=== PATIENT | male | born 1980 | race Caucasian/White ===

== ENCOUNTER 2023-07-09 09:55 | Emergency (ER) | payer BC, SELFPAY ==
[2023-07-09] VITALS (9 sets, daily range): BP systolic 113–154; BP diastolic 78–101; PULSE 91–103; RESP 14–27; TEMP 37.1; O2SAT 94–99; BMI 37.2
--- NOTE | 2023-07-09 10:09 | XR_ITS ---
The [address] [address] Patient Name: HERNANDO HA MRN: [id number] date: 1980 Sex: M Assigned Patient Location: ED.MAIN Current Patient Location: ER Accession/Order Number: [id number] Exam Date: 07/09/2023 10:50 Report Date: 07/09/2023 11:14 At the request of: VENUS TONY Procedure: XR chest 1V EXAM: XR chest 1V HISTORY: SOB COMPARISON: 01/31/2020 TECHNIQUE: Chest X-ray AP, 1 view FINDINGS: Support devices: None. Lungs/pleura: No consolidation, effusion, or pneumothorax. Heart and mediastinum: Normal contours. Bones: No acute abnormality identified. XR/XR chest 1V Impression: No radiographic evidence of acute cardiopulmonary process. Electronically authenticated by: FAISAL COATS Date: 07/09/2023 11:14
--- NOTE | 2023-07-09 10:10 | ED.URI1 ---
HPI - URI/Sore Throat General Chief Complaint: Upper Respiratory Infection Stated Complaint: CHEST DISCOMFORT/WHEEZING Time Seen by Provider: 07/09/23 09:59 Source: patient History of Present Illness HPI Narrative: 42-year-old male presents for a cough. He has had this for about 10 days and his wanted him to come in and get checked. He has had some wheezing at home. He had childhood asthma but outgrew it. He has not had a fever at home. No vomiting or diarrhea. The wheezing gets worse when he lays down flat. Related Data Previous Rx's Medication Instructions Recorded albuterol sulfate 90 mcg/actuation 2 inh inhalation Q4H PRN shortness 07/09/23 aerosol inhaler of breath or wheezing #8.5 grams azithromycin 250 mg tablet See Rx Instructions PO .COMPLEX #6 07/09/23 (Zithromax Z-Darek) tabs benzonatate 100 mg capsule 100 mg PO TID PRN cough #20 caps 07/09/23 Allergies Allergy/AdvReac Type Severity Reaction Status Date / Time amoxicillin [From Augmentin] Allergy Severe Verified 07/09/23 10:02 clavulanic acid Allergy Severe Verified 07/09/23 10:02 [From Augmentin] Review of Systems ROS Narrative A ten point review of systems is negative except as noted above. Exam Narrative Exam Narrative: Nurses note and vital signs reviewed and patient is not hypoxic. General: The patient appears well and in no apparent distress. Patient is resting comfortably on cart. Skin: Warm, dry, no pallor noted. There is no rash noted. Head: Normocephalic, atraumatic Eye: Normal conjunctiva, no drainage Ears, Nose, Mouth, and Throat: oral mucosa is moist. Nares patent. Cardiovascular: Regular Rate and Rhythm Respiratory: Rhonchi present. Breath sounds equal, patient is in no distress Back: non-tender GI: Normal bowel sounds, no tenderness to palpation, no masses appreciated. No rebound, guarding, or rigidity noted. Musculoskeletal: The patient has no evidence of calf tenderness, no pitting edema, symmetrical pulses noted bilaterally Neurological: A&O, normal speech Psychiatric: Cooperative Constitutional Vital Signs, click to edit/add: Last Vital Signs Temp 98.8 F 07/09/23 09:58 Pulse 96 H 07/09/23 11:00 Resp 19 07/09/23 11:00 BP 137/97 H 07/09/23 10:30 Pulse Ox 96 07/09/23 10:50 O2 Del Method Room Air 07/09/23 10:06 Course Vital Signs Vital signs: Vital Signs Temperature 98.8 F 07/09/23 09:58 Pulse Rate 94 H 07/09/23 09:58 Respiratory Rate 20 07/09/23 09:58 Blood Pressure 154/94 H 07/09/23 09:58 Pulse Oximetry 97 07/09/23 09:58 Oxygen Delivery Method Room Air 07/09/23 09:58 Temperature 98.8 F 07/09/23 09:58 Pulse Rate 96 H 07/09/23 11:00 Respiratory Rate 19 07/09/23 11:00 Blood Pressure 137/97 H 07/09/23 10:30 Pulse Oximetry 96 07/09/23 10:50 Oxygen Delivery Method Room Air 07/09/23 10:06 MDM - URI/Sore Throat MDM Narrative Medical decision making narrative: X-ray is negative. He was offered COVID testing but already took it at home and does not feel that he needs another one. He is prescribed albuterol and Zithromax and Tessalon. Treatment diagnosis and follow-up were discussed with the patient. Differential Diagnosis Differential diagnosis: Likely upper respiratory infection, viral infection, bronchitis, influenza and other (COVID, pneumonia) Imaging Data Chest x-ray: Radiologist's impression: ITS Impressions Chest X-Ray 07/09/23 10:09 Impression: No radiographic evidence of acute cardiopulmonary process. Electronically authenticated by: FAISAL COATS Date: 07/09/2023 11:14 ECG Data Attestation: I personally reviewed and interpreted this ECG as follows: (EKG on my interpretation shows normal sinus rhythm without acute change and a rate of 96.) Discharge Plan Discharge Chief Complaint: Upper Respiratory Infection Clinical Impression: Upper respiratory infection Patient Disposition: Home, Self-Care Time of Disposition Decision: 11:30 Condition: Good Mode of Transportation: Private Vehicle Prescriptions / Home Meds: New azithromycin [Zithromax Z-Darek] 250 mg tablet See Rx Instructions .ROUTE .COMPLEX Qty: 6 0RF Rx Instructions: For 250 mg dose pack: take 500 mg today (day 1), then 250 mg for 4 days (days 2-5) benzonatate 100 mg capsule 100 mg PO TID PRN (Reason: cough) Qty: 20 0RF albuterol sulfate 90 mcg/actuation HFA aerosol inhaler 2 inh inhalation Q4H PRN (Reason: shortness of breath or wheezing) Qty: 8.5 0RF Instructions: Upper Respiratory Infection (ED) Stand Alone Forms: Portal Instructions Referrals: Luisa Herrera MD [Primary Care Provider] - 1 week
--- NOTE | 2023-07-09 10:12 | ECG_ITS ---
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
[2023-07-09] MEDS: ALBUTEROL SULFATE 2.5 MG/3 ML VIAL NEB IH (10:20)
== END 2023-07-09 11:38 | disposition home or self-care (01) ==
PROVIDERS: Emergency Provider Emergency Medicine; PCP Family Medicine
DX: J06.9 Acute upper respiratory infection, unspecified (principal); R06.2 Wheezing
CPT/HCPCS: 71045; 93005; 94640; 99284

== ENCOUNTER 2023-09-05 09:16 | Outpatient (OUT) | payer BC, SELFPAY ==
--- OUTSIDE RECORDS SUMMARY | 2023-09-05 09:31 | XMS_ITS | CCD ---
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 05/03/23 11:32 EST Hospital Discharge instructions 05-03-2023 Note Date & Type Note Facility 05-03-2023 Hospital Discharg e instructions Patient Education 05/03/2023 11:30:16 Testicular Self-Exam Testicular Self-Exam A self-examination of your testicles (testicular self-exam) involves looking at and feeling your testicles for abnormal lumps or swelling. Several things can cause swelling, lumps, or pain in your testicles. Some of these causes are: Injuries. Inflammation. Infection. Buildup of fluids around the testicle (hydrocele). Twisted testicles (testicular torsion). Testicular cancer. You may be at risk for testicular cancer if you have: ?An undescended testicle (cryptorchidism). ?A history of previous testicular cancer. ?A family history of testicular cancer. General tips and recommendations The testicles are easiest to examine after a warm bath or shower. They are more difficult to examine when you are cold because the muscles attached to the testicles retract and pull them up higher or into the abdomen. A normal testicle is egg-shaped and feels firm. It is smooth and not tender. It is normal to feel a firm, spaghetti-like cord at the back of your testicle. This is the spermatic cord. How to do a testicular self-exam 1.Stand and hold your penis away from your body. 2.Look at each testicle to check for changes in appearance, such as swelling or changes in size or shape. 3.Roll each testicle between your thumb and forefinger, feeling the entire testicle. Feel for: Lumps. Swelling. Discomfort. 4.Check the groin area between your abdomen and upper thighs on both sides of your body. Look and feel for any swelling or bumps that are tender. These could be enlarged lymph nodes. Contact a health care provider if: You find any bumps or lumps, such as a small, hard, pea-sized lump. You find swelling, pain, or soreness. You see or feel any other changes in your testicles. Summary A self-examination of your testicles (testicular self-exam) involves looking at and feeling your testicles for any changes. Check each of your testicles for lumps, swelling, or discomfort. These changes can be caused by many things. Check for swelling or tender bumps in your groin area between your lower abdomen and upper thighs. This information is not intended to replace advice given to you by your health care provider. Make sure you discuss any questions you have with your health care provider. Document Revised: 04/14/2020 Document Reviewed: 04/14/2020 [employer] Patient Education 2022 [email or web address]. Follow Up Care 01/18/2023 12:18:29 With:KAROLINA LEON, Deon Flores, URL Address: [address] [place] [address]- When: Unknown [facility] Evaluation note 11-18-2022 Note Date & Type Note Facility 11-18-2022 Evaluation note Encounter Date Diagnosis Assessment Notes Oct, Breast pain, left (ICD-10 - N64.4) Discussed differential - no injury or trauma. Has been consistent for some time. Obtain US for further reassurance. [employer] Other Evaluation + Plan note Note Date & Type Note Facility Evaluation + Plan note No data available for this section [facility] [place] Evaluation note Note Date & Type Note Facility Evaluation note No assessment information availa [facility] Work Phone: Evaluation note Note Date & Type Note Facility Evaluation note Diagnosis Onset Date Bronchitis acute LUQ abdominal pain acute Chronic cough acute [facility] Work Phone: History general Narrative - Reported Note Date & Type Note Facility History general Narrative - Reported Type Medical History Depression/anxiety Medical History R shoulder pain Medical History lumbar pain Surgical History Tailbone - pilonidal cyst 2019 Surgical History Back surgery, L4-L5 2018 Surgical History Appendectomy 1996 [employer] Other Progress note Note Date & Type Note Facility Progress note No data available for this section [facility] [place] Summary Purpose Family History Relationship Condition Age at Onset Recorded Date/T cornelius brother Family history of mental disorder Unknown father Heart disease Unknown Diabetes mellitus Unknown Advance Directives Advance Directive Response Recorded Date/ Time Advance Directives No August 04, 024 8:58am Chief Complaint and Reason for Visit Chief Complaint ER Follow Up Chief Complaint ER Follow Up 1 month follow up Reason for Visit Bronchitis LUQ abdominal pain Chronic cough Additional Source Comments (unrecognized sect ion and content) No Status Records FoundNo Status Records FoundNo Status Records Found INFORMATION SOURCE (unrecogn ized section and content) DATE CREATED AUTHOR 04/11/2020 [facility] DATE CREATED AUTHOR AUTHOR'S ORGANIZ ATION 08/04/2020 Alisha covarrubias DATE CREATED AUTHOR AUTHOR'S ORGANIZ ATION 05/05/2023 [facility] REASON FOR VISIT (unrecogniz ed section and content) CHECK UP Patient Care team informatio n (unrecognized section and content) Team Status: Active Member Role Status Dates Luisa Herrera MD Primary Care Provider Active Team Status: Inactive Member Role Status Dates Luisa Herrera MD Primary Care Provide r, Attending Provider Active Start: August 05, 2023 End: August 05, 2023 Team Status: Inactive Member Role Status Dates Luisa Herrera MD Primary Care Provide r, Attending Provider Active Start: September 05, 2023 End: September 05, 2023 Goals (unrecognized section and content) Goals may be documented in a n alternate section FOR RECORDS PERTAINING TO PATIENTS WHO ARE OR HAVE BEEN ENROLLED IN A CHEMICAL DEPENDENCY/SUBSTANCEABUSE PROGRAM, SOME INFORMATION MAY BE OMITTED. This clinical summary was aggregated from multiple sources. Caution should be exercised in using it in the provision of clinical care. This summary normalizes information from multiple sources, and as a consequence, information in this document may materially change the coding, format and clinical context of patient data. In addition, data may be omitted in some cases. CLINICAL DECISIONS SHOULD BE BASED ON THE PRIMARY CLINICAL RECORDS. [employer] [facility]. provides no warranty or guarantee of the accuracy or completeness of information in this document.
--- NOTE | 2023-09-05 09:36 | XR_ITS ---
The [address] [address] Patient Name: HERNANDO HA MRN: [id number] date: 1980 Sex: M Assigned Patient Location: [facility] Current Patient Location: RAD Accession/Order Number: [id number] Exam Date: 09/05/2023 09:30 Report Date: 09/05/2023 10:10 At the request of: LORENA GREENFIELD Procedure: XR chest 2V EXAMINATION: XR chest 2V HISTORY: Chronic Cough R05.3 COMPARISON: 07/09/2023 01/31/20 TECHNIQUE: PA and lateral FINDINGS: LUNGS: Right lung base nodule measuring 1.2 cm. The left lung is clear. No new focal parenchymal infiltrates VASCULATURE: No increased pulmonary vasculature. PLEURA: No pneumothorax, effusion, or pleural thickening. CARDIAC: No cardiomegaly or cardiac silhouette abnormality. MEDIASTINUM: No visible mass or adenopathy. BONES: No fracture or visible bone lesion. OTHER: Negative. XR/XR chest 2V IMPRESSION: 1.2 cm right basilar nodule. CT follow-up is recommended Electronically authenticated by: SERA SHARMA Date: 09/05/2023 10:10
== END 2023-09-05 09:17 | disposition home or self-care (01) ==
LOC: RAD 09:18
PROVIDERS: PCP Family Medicine; Visit Provider Family Medicine
DX: R05.3 Chronic cough (principal); R91.1 Solitary pulmonary nodule
CPT/HCPCS: 71046

== ENCOUNTER 2023-09-21 09:20 | Outpatient (OUT) | payer BC, SELFPAY ==
--- NOTE | 2023-09-21 09:24 | CT_ITS ---
[address] [address] Patient Name: HERNANDO HA MRN: [id number] date: 1980 Sex: M Assigned Patient Location: CT Current Patient Location: CT Accession/Order Number: [id number] Exam Date: 09/21/2023 09:40 Report Date: 09/21/2023 14:13 At the request of: LORENA GREENFIELD Procedure: CT chest w con EXAMINATION: CT chest w con HISTORY: Solitary Pulmonary Nodule R91.1 COMPARISON: 09/05/2023 TECHNIQUE: Multi-planar CT images were created with IV contrast. Axial, Coronal, and Sagittal images. Dose reduction techniques were achieved by using automated exposure control and/or adjustment of mA and/or kV according to patient size and/or use of iterative reconstruction technique. FINDINGS: LUNGS: Bilateral scattered solid noncalcified pulmonary nodules the largest is noted in the right upper lobe mildly spiculated in contour measuring 1.7 x 1.2 cm on axial image #48. The second largest nodule is in the right upper lobe axial image 45 measuring 7.5 x 5.5 mm. PLEURA: No mass, effusion, or pneumothorax. VASCULATURE: No abnormality. MICHELLE: No mass or adenopathy. MEDIASTINUM: No mass or adenopathy. CARDIAC: No enlargement, pericardial thickening, or significant calcification. AORTA: No aneurysm or dissection. CHEST WALL: No mass or axillary adenopathy. BONES: No bone lesion or fracture. LIMITED ABDOMEN: Diffuse hypoattenuation of the liver consistent with hepatic steatosis OTHER: Negative. CT/CT chest w con IMPRESSION: 1.7 x 1.2 cm mildly spiculated solid noncalcified right upper lobe nodule corresponding to the plain film findings. Additional smaller nodules measuring up to 7.5 mm. Consider PET scan follow-up to evaluate metabolic status. Alternatively tissue sampling and histopathologic diagnosis should be performed Electronically authenticated by: SERA SHARMA Date: 09/21/2023 14:13
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
== END 2023-09-21 09:21 | disposition home or self-care (01) ==
LOC: CT 09:20
PROVIDERS: PCP Family Medicine; Visit Provider Family Medicine
DX: R91.1 Solitary pulmonary nodule (principal)
CPT/HCPCS: 71260; Q9967